=== PATIENT | female | born 1970 | race Caucasian/White ===

== ENCOUNTER → 2020-07-11 | Outpatient (CLI) | payer BC ==
[~2020-07-11] MED LIST: ATENOLOL25 MG PO; HYDROCODON-ACE1 EAC4 PO; IBU600 MG PO; IRON18 MG PO; VITAMIN B-121000 MCG PO
[2020-07-11 09:37] LABS: HEMOGLOBIN 12.7 gm/dl (12.3-15.3); RED BLOOD COUNT 4.28 M/UL (4.00-5.10); WHITE BLOOD COUNT 4.7 K/UL (4.5-11.0)
[2020-07-11 09:55] LABS: BUN/CREATININE RATIO 20 (0-10)
== END ==
LOC: OPSV2 08:00
PROVIDERS: Obstetrics & Gynecology
DX: Z01.818 Encounter for other preprocedural examination (principal); N84.0 Polyp of corpus uteri; R94.31 Abnormal electrocardiogram [ECG] [EKG]
CPT/HCPCS: 36415; 71046; 80048; 81001; 85025; 93005

== ENCOUNTER → 2020-07-21 | Day surgery (SDC) | payer BC | END | disposition home or self-care (01) | LOC: OR 07:30 | DX: N85.8 Other specified noninflammatory disorders of uterus (principal); R87.618 Other abnormal cytological findings on specimens from cervix uteri; I10 Essential (primary) hypertension; E53.8 Deficiency of other specified B group vitamins; Z80.9 Family history of malignant neoplasm, unspecified; Z83.3 Family history of diabetes mellitus; Z82.49 Family history of ischemic heart disease and other diseases of the circulatory system; Z79.899 Other long term (current) drug therapy; Z20.822 Contact with and (suspected) exposure to COVID-19 | CPT/HCPCS: J2001; J2250; J2405; J2704; J2795; J3010; J7120 ==

== ENCOUNTER → 2021-02-15 | Outpatient (CLI) | payer BC | LOC: KOH-I 11:49 | DX: M25.50 Pain in unspecified joint (principal); M25.562 Pain in left knee; M25.561 Pain in right knee; M79.672 Pain in left foot; M79.671 Pain in right foot | CPT/HCPCS: 73562; 73610; 73630 ==

== ENCOUNTER 2021-07-10 03:07 | Emergency (ER) | payer BC ==
[2021-07-10 03:42] LABS: HEMOGLOBIN 13.5 gm/dl (12.3-15.3); RED BLOOD COUNT 4.43 M/UL (4.00-5.10); WHITE BLOOD COUNT 4.3 K/UL (4.5-11.0)
[2021-07-10 04:03] LABS: BUN/CREATININE RATIO 11 (0-10)
[2021-07-10] MEDS ORDERED: ZOFRAN ODT 4 MG4 MG GT (05:32)
[2021-07-10] MEDS ORDERED: PERCOCET 5/325 T1 EA PO (05:32)
[2021-07-11] MEDS ORDERED: DECADRON4 MG PO (06:09)
[2021-07-11] MEDS ORDERED: IBUPROFEN600 MG PO (06:09)
[2021-07-11] MEDS ORDERED: DOXYCYCLINE HY100 MG PO (06:09)
[2021-07-11] MEDS ORDERED: ASPIRIN CHEWABL81 MG PO (06:09)
== END 2021-07-10 06:13 | disposition home or self-care (01) ==
LOC: ER1 03:07
PROVIDERS: Family Medicine
DX: N13.2 Hydronephrosis with renal and ureteral calculous obstruction (principal); I10 Essential (primary) hypertension
CPT/HCPCS: 80053; 81001; 83690; 85025; 96374; 96375; 99284; J2270; J2405; J7030

== ENCOUNTER 2021-07-11 03:58 | Emergency (ER) | payer BC ==
[~2021-07-11 03:58] MED LIST changes: +PERCOCET 5/325 T1 EA PO; +ZOFRAN ODT 4 MG4 MG GT
[2021-07-11 05:13] LABS: HEMOGLOBIN 13.2 gm/dl (12.3-15.3); RED BLOOD COUNT 4.41 M/UL (4.00-5.10); WHITE BLOOD COUNT 4.4 K/UL (4.5-11.0)
[2021-07-11 05:26] LABS: BUN/CREATININE RATIO 10 (0-10)
[2021-07-11] MEDS ORDERED: DECADRON4 MG PO (06:09)
[2021-07-11] MEDS ORDERED: IBUPROFEN600 MG PO (06:09)
[2021-07-11] MEDS ORDERED: DOXYCYCLINE HY100 MG PO (06:09)
[2021-07-11] MEDS ORDERED: ASPIRIN CHEWABL81 MG PO (06:09)
== END 2021-07-11 07:16 | disposition home or self-care (01) ==
LOC: ER1 03:58
PROVIDERS: Family Medicine
DX: U07.1 COVID-19 (principal)
CPT/HCPCS: 71045; 80053; 82550; 82553; 82728; 83615; 83874; 84484; 85025; 85379; 86140; 93005; 96374; 96375; 99285; J1100; J2270; J2405; Q9967; U0002

== ENCOUNTER 2021-07-19 10:12 | Observation (INO) | payer BC ==
[~2021-07-19] VITALS: Ht 165.1 cm; Wt 79.8 kg
[~2021-07-19 10:12] MED LIST changes: +ASPIRIN CHEWABL81 MG PO; +DECADRON4 MG PO; +DOXYCYCLINE HY100 MG PO; +IBUPROFEN600 MG PO
[2021-07-19 11:09] LABS: HEMOGLOBIN 13.1 gm/dl (12.3-15.3); RED BLOOD COUNT 4.37 M/UL (4.00-5.10); WHITE BLOOD COUNT 10.4 K/UL (4.5-11.0)
[2021-07-19 11:31] LABS: BUN/CREATININE RATIO 17 (0-10)
[2021-07-19] MEDS ORDERED: ASPIRIN EC81 MG PO (15:03)
[2021-07-19] MEDS ORDERED: PROAIR DIGIHAL90 MCG INH (15:04)
[2021-07-19] MEDS ORDERED: BENZONATATE100 MG PO (15:04)
[2021-07-19] MEDS ORDERED: TYLENOL EXTRA500 MG PO (15:05)
[2021-07-19] MEDS ORDERED: VITAMIN C500 M4 PO (15:05)
[2021-07-19] MEDS ORDERED: VITAMIN D325 MCG PO (15:05)
[2021-07-20 07:41] LABS: HEMOGLOBIN 12.4 gm/dl (12.3-15.3); RED BLOOD COUNT 4.22 M/UL (4.00-5.10); WHITE BLOOD COUNT 8.3 K/UL (4.5-11.0)
[2021-07-20 08:17] LABS: BUN/CREATININE RATIO 22 (0-10)
--- NOTE | 2021-07-20 09:18 | NUR ---
CALLED REPORT TO [facility] AT THIS TIME
[2021-07-21] MEDS ORDERED: DECADRON6 MG PO (10:28)
[2021-07-21] MEDS ORDERED: CEFUROXIME500 MG PO (10:28)
[2021-07-21] MEDS ORDERED: IPRAT-ALBUT 0.5-3 ML NEB (10:28)
[2021-07-21] MEDS ORDERED: BENZONATATE100 MG PO (10:36)
== END 2021-07-21 13:03 | disposition home or self-care (01) ==
LOC: ER1 10:12 → 3 EAST 13:29 → CDU 13:29 → 3 EAST 15:55 → MED SURG 4 07-20 09:37
PROVIDERS: Physician Assistant Medical; ADMIT Family Medicine
DX: U07.1 COVID-19 (principal); J12.82 Pneumonia due to coronavirus disease 2019; J96.01 Acute respiratory failure with hypoxia; I10 Essential (primary) hypertension; Z79.899 Other long term (current) drug therapy
CPT/HCPCS: 36600; 80048; 80053; 82550; 82553; 82728; 82803; 83615; 83874; 84484; 85025; 85610; 93005; 94640; 94760; 96372; 96374; 96375; 96376; 99285; G0378; J0248; J1100; J1650; J7030; Q9967

== ENCOUNTER → 2021-08-13 | Outpatient (CLI) | payer BC ==
[~2021-08-13] MED LIST changes: +ASPIRIN EC81 MG PO; +BENZONATATE100 MG PO; +CEFUROXIME500 MG PO; +DECADRON6 MG PO; +IPRAT-ALBUT 0.5-3 ML NEB; +PROAIR DIGIHAL90 MCG INH; +TYLENOL EXTRA500 MG PO; +VITAMIN C500 M4 PO; +VITAMIN D325 MCG PO
== END ==
LOC: KOH-I 08:58
DX: J12.81 Pneumonia due to SARS-associated coronavirus (principal); R91.8 Other nonspecific abnormal finding of lung field
CPT/HCPCS: 71046

== ENCOUNTER → 2021-09-21 | Outpatient (CLI) | payer BC | LOC: KOH-I 12:00 | DX: J18.9 Pneumonia, unspecified organism (principal); R91.1 Solitary pulmonary nodule | CPT/HCPCS: 71046 ==

== ENCOUNTER → 2021-10-23 | Outpatient (CLI) | payer BC | LOC: KOH-I 08:46 | DX: J12.81 Pneumonia due to SARS-associated coronavirus (principal); R91.8 Other nonspecific abnormal finding of lung field | CPT/HCPCS: 71250 ==

== ENCOUNTER → 2021-12-10 | Outpatient (CLI) | payer BC | LOC: EXRD 09:44 | DX: U07.1 COVID-19 (principal); J12.82 Pneumonia due to coronavirus disease 2019 | CPT/HCPCS: 71046 ==

== ENCOUNTER → 2022-02-28 | Outpatient (CLI) | payer BC | LOC: EXRD 11:15 | DX: E04.1 Nontoxic single thyroid nodule (principal) | CPT/HCPCS: 76536 ==